=== PATIENT | female | born 1960 | race Caucasian/White ===

== ENCOUNTER 2018-06-01 08:41 | Observation (INO) | payer BC ==
[2018-06-01] MEDS: CIPROFLOXACIN 400MG/D5W 200 ML IVPB (09:00)
[2018-06-01] MEDS: LACTATED RINGER'S 1,000 ML IV ×2 (09:45→20:30)
[2018-06-01] MEDS ORDERED: LIDOCAINE 2% (SDV) 5 ML INJ (11:22)
[2018-06-01] MEDS ORDERED: METOCLOPRAMIDE 10 MG INJ (11:22)
[2018-06-01] MEDS ORDERED: MEPERIDINE /PF (100 MG/2 ML) AMPULE (11:22)
[2018-06-01] MEDS ORDERED: ONDANSETRON 4 MG INJ (11:22)
[2018-06-01] MEDS ORDERED: PROPOFOL 20 ML (11:22)
[2018-06-01] MEDS: BUPIVACAINE 0.5%/EPI (SDV) 30 ML INJ (11:25)
[2018-06-01] MEDS ORDERED: CIPROFLOXACIN 400MG/D5W 200 ML (11:27)
[2018-06-01] MEDS ORDERED: EPHEDrine SULFATE 50 MG/5 ML SYG (11:57)
[2018-06-01] MEDS ORDERED: INDIGOTINDISULFONATE 0.8% 5 ML INJ (11:58)
[2018-06-01] MEDS ORDERED: FENTAnyl 50 MCG/ML VIAL IV ×3 (12:00)
[2018-06-01] MEDS ORDERED: DIPHENHYDRAMINE 50 MG INJ IV (12:00)
[2018-06-01] MEDS ORDERED: MIDAZOLAM 1 MG/ML 2 ML INJ IV (12:00)
[2018-06-01] MEDS ORDERED: ONDANSETRON 4 MG INJ IV (12:00)
[2018-06-01] MEDS ORDERED: EPHEDrine SULFATE 50 MG/5 ML SYG IV (12:00)
[2018-06-01] MEDS ORDERED: METOCLOPRAMIDE 10 MG INJ IV (12:00)
[2018-06-01] MEDS ORDERED: HYDROmorphONE 1 MG/5 ML IV SYRINGE IV ×3 (12:00)
[2018-06-01] MEDS ORDERED: hydrALAzine 20 MG INJ IV (12:00)
[2018-06-01] MEDS ORDERED: LABETALOL HCL 20MG INJ IV (12:00)
[2018-06-01] MEDS ORDERED: MEPERIDINE 25 MG INJ IV (12:00)
[2018-06-01] MEDS ORDERED: OXYCODONE/ACETAMINOPHEN (5/325) TAB PO ×2 (12:00)
[2018-06-01] MEDS ORDERED: FUROSEMIDE 20 MG INJ (12:16)
[2018-06-01] MEDS ORDERED: DEXTROSE 5%-0.45% NACL 1,000 ML IV (13:09)
[2018-06-01] MEDS ORDERED: HYDROCODONE/APAP (5/325) TAB NGT (13:30)
[2018-06-01] MEDS ORDERED: HYDROmorphONE 1 MG/ML SYG IV (13:30)
[2018-06-01] MEDS ORDERED: HYDROCODONE/APAP (5/325) TAB GTB (13:30)
[2018-06-01] MEDS ORDERED: ACETAMINOPHEN 325 MG TAB PO (13:30)
[2018-06-01] MEDS ORDERED: GLUCAGON 1 MG INJ IM (17:00)
[2018-06-01] MEDS ORDERED: DEXTROSE 50% 50 ML SYRINGE IV ×2 (17:00)
[2018-06-01] MEDS ORDERED: GLUCOSE GEL 15 GRAM TUBE BUCCAL (17:00)
[2018-06-01] MEDS ORDERED: GLUCOSE GEL 15 GRAM TUBE PO ×2 (17:00)
[2018-06-01] MEDS ORDERED: ACCU-CHEK XX (17:30)
[2018-06-01] MEDS ORDERED: glipiZIDE 10 MG TAB PO (17:30)
[2018-06-01] MEDS: INSULIN ASPART [NOVOLOG] 3 ML PEN SC ×2 (17:34→21:00)
[2018-06-01] MEDS: metFORMIN 500 MG TAB PO (17:34)
[2018-06-01] MEDS: ACCU-CHEK XX ×2 (17:35→21:00)
[2018-06-02] MEDS: ACCU-CHEK XX ×2 (01:21→07:00)
[2018-06-02 06:48] LABS: ADD MAN DIFF? NO
[2018-06-02 06:54] LABS: BASOPHILS % 0.1 % (0.0-2.0); EOSINOPHILS % 0.4 % (0.0-7.0); HEMATOCRIT 34.5 % (37.0-47.0); HEMOGLOBIN 11.6 g/dl (12.0-16.0); LYMPHOCYTES % 27.4 % (15.0-51.0); MEAN CORPUSCULAR HEMOGLOBIN 29.7 pg (29.0-33.0); MEAN CORPUSCULAR HGB CONC 33.6 g/dl (32.0-37.0); MEAN CORPUSCULAR VOLUME 88.2 fl (82.0-101.0); MEAN PLATELET VOLUME 11.2 fl (7.4-10.4); MONOCYTE # 0.5 10^3/ul (0.3-0.9); MONOCYTES % 6.5 % (0.0-11.0); NEUTROPHIL # 4.8 10^3/ul (1.6-7.5); NEUTROPHILS % 65.5 % (39.0-77.0); PLATELET COUNT 178 10^3/UL (140-415); RED BLOOD COUNT 3.91 10^6/ul (4.20-5.40)
[2018-06-02 06:54] LABS: WHITE BLOOD COUNT 7.4 10^3/ul (4.8-10.8)
[2018-06-02 07:21] LABS: ANION GAP 12 (8-16); BLOOD UREA NITROGEN 13 mg/dl (7-20); CALCIUM 9.2 mg/dl (8.4-10.2); CARBON DIOXIDE 30 mmol/L (21-31); CHLORIDE 101 mmol/L (97-110); CREATININE 0.47 mg/dl (0.44-1.00); GLUCOSE 136 mg/dl (70-220); MAGNESIUM 1.7 mg/dl (1.7-2.5); POTASSIUM 3.7 mmol/L (3.5-5.1); SODIUM 139 mmol/L (135-144)
[2018-06-02] MEDS: metFORMIN 500 MG TAB PO (08:10)
[2018-06-02] MEDS: AMLODIPINE 10 MG TAB PO (08:11)
[2018-06-02] MEDS: INSULIN ASPART [NOVOLOG] 3 ML PEN SC (08:14)
== END 2018-06-02 11:45 | disposition home or self-care (01) ==
LOC: SDS 08:41 → REC 13:09 → 2NE 14:33
PROVIDERS: Urology
DX: N81.10 Cystocele, unspecified (principal); E11.9 Type 2 diabetes mellitus without complications; I10 Essential (primary) hypertension
CPT/HCPCS: 57240; 71045; 80048; 82962; 83735; 85025; 88305; 99217